=== PATIENT | male | born 2000 | race Two or more races ===

== ENCOUNTER 2024-12-24 11:11 | Emergency (ER) | payer BC, SELFPAY ==
[2024-12-24 11:26] VITALS: BP 142/90; PULSE 65; RESP 16; TEMP 36.9; O2SAT 97; BMI 38.5
[2024-12-24] MEDS: LIDOCAINE HCL 1% 20 ML VIAL INFL (11:39)
--- NOTE | 2024-12-24 12:04 | EDNOTE_ITS ---
<Statement entered by Liliana Hernandez MD - 12/24/24 17:32> As co-signing physician, I was present and available for consult prn. I concur with the plan and care as documented by the midlevel provider. ED Skin Abcess FB-RME/HPI General Chief complaint: Skin/Abscess/Foreign Body Stated complaint: CYST TO LOWER BACK Time Seen by Provider: 12/24/24 11:25 Source: patient Arrival date/time: 12/24/24 11:11 24-year-old male with no known medical history presents to the emergency room with a chief complaint of a cyst to his lower back x 3 days. Mode of arrival: ambulatory Limitations: no limitations Related Data Previous Rx's ?Medication ?Instructions ?Recorded clindamycin HCl 150 mg capsule 450 mg (3 x 150 mg) PO TID 7 days 12/24/24 #63 caps Allergies Allergy/AdvReac Type Severity Reaction Status Date / Time No Known Allergies Allergy Verified 12/24/24 11:14 Review of Systems Review of Systems Systems Reviewed: All systems reviewed, normal except as documented Constitutional Constitutional: Reports system reviewed and no additional complaints, except as documented, Denies fatigue, Denies fever(s), Denies headache(s) and Denies weakness Eyes Eyes: Reports system reviewed and no additional complaints, except as documented, Denies blurry vision and Denies change in vision ENT Ears, Nose, Mouth, and Throat: Reports system reviewed and no additional complaints, except as documented, Denies otalgia, Denies headache(s), Denies nasal congestion, Denies throat swelling and Denies vertigo Cardiovascular Cardiovascular: Reports system reviewed and no additional complaints, except as documented, Denies chest pain, Denies dyspnea and Denies dyspnea on exertion Respiratory Respiratory: Reports system reviewed and no additional complaints, except as documented, Denies chest congestion, Denies cough, Denies dyspnea, Denies dyspnea on exertion and Denies wheezing Gastrointestinal Gastrointestinal: Reports system reviewed and no additional complaints, except as documented, Denies abdominal pain, Denies cramping, Denies nausea and Denies vomiting Genitourinary Genitourinary: Reports system reviewed and no additional complaints, except as documented, Denies dysuria and Denies hematuria Musculoskeletal Musculoskeletal: Reports system reviewed and no additional complaints, except as documented and Denies back pain Integumentary/Breasts Skin/Breast: Reports system reviewed and no additional complaints, except as documented and Reports wounds (Pilonidal cyst) Neurologic Neurologic: Reports system reviewed and no additional complaints, except as documented, Denies confusion, Denies headache(s), Denies lack of coordination, Denies vertigo and Denies weakness Psychiatric Psychiatric: Reports system reviewed and no additional complaints, except as documented, Denies anxiety, Denies confusion, Denies depression, Denies paranoia, Denies suicidal ideation and Denies tactile hallucinations Endocrine Endocrine: Reports system reviewed and no additional complaints, except as documented and Denies fatigue Hematologic/Lymphatic Hematologic/Lymphatic: Reports system reviewed and no additional complaints, except as documented and Denies lymphadenopathy Allergic/Immunologic Allergic/Immunologic: Reports system reviewed and no additional complaints, except as documented, Denies throat swelling, Denies urticaria and Denies wheezing ED Exam General Limitations: Present no limitations General appearance: Present alert and in no apparent distress Head Head exam: Present atraumatic Eye Eye exam: Present normal appearance, PERRL and EOMI ENT ENT exam: Present normal exam, normal oropharynx and mucous membranes moist Neck Neck exam: Present normal inspection, full ROM and trachea midline Chest Chest inspection: Present normal inspection and symmetric chest wall rise Respiratory Respiratory exam: Present normal lung sounds bilaterally Cardiovascular Cardiovascular exam: Present regular rate, normal rhythm and normal heart sounds Abdominal Exam Abdominal exam: Present soft and normal bowel sounds Extremities Exam Extremities exam: Present normal inspection and full ROM Back Exam Back exam: Present normal inspection and full ROM Neurological Exam Neurological exam: Present alert, oriented X3 and CN II-XII intact Psychiatric Psychiatric exam: Present normal affect and normal mood Skin Skin exam: Present warm, dry, intact and normal color Expanded Skin Exam Type of lesion: Present abscess Distribution: Present other (Pilonidal cyst to the gluteal cleft) Description: Present tenderness, erythematous and discharge Body image: 2 1. 1 cm x 1 cm pilonidal cyst Course Quality Measures none Orders Category Date Time Status Set Up Suture Tray STAT Care 12/24/24 11:29 Active Wound Care NOW Care 12/24/24 11:29 Active Lidocaine 1% 20 ml [Xylocaine 1% 20 ML] Med 12/24/24 11:29 Discontinued 20 ml INFL X1 ONE Vital Signs Vital signs: Vital Signs Temperature 98.4 F 12/24/24 11:26 Pulse Rate 65 12/24/24 11:26 Respiratory Rate 16 12/24/24 11:26 Blood Pressure 142/90 H 12/24/24 11:26 Pulse Oximetry (%) 97 12/24/24 11:26 Oxygen Delivery Method Room Air 12/24/24 11:26 Procedures -ED Abscess I/D Site: other (Gluteal cleft pilonidal cyst) Local Anesthetic: lidocaine 1% Amount of anesthesia used (mL): 4 Technique: incised with #11 blade Amount of fluid expressed (mL): 3 Irrigation: Yes Packing used?: none Skin / Abscess / Foreign Body MDM Narrative MDM Narrative:: 24-year-old male with no known medical history presents to the emergency room with a chief complaint of a cyst to his lower back x 3 days. Patient is hemodynamically stable and in no apparent distress Physical examination shows a 1 cm x 1 cm pilonidal cyst. Patient states he was seen by his primary care provider and was sent to the emergency room for an incision and drainage An incision and drainage was performed the patient was cleaned and prepped with Betadine 3 mL of lidocaine were used and injected into the cyst. A #11 blade was used to create a small incision in the pilonidal cyst was drained and irrigated extensively. There were no complications a dressing was placed on the wound patient was discharged with oral antibiotics and was educated to return to the emergency room for any evidence of worsening signs or symptoms Patient data External records reviewed:: [facility] previous records Clinical information provided by:: patient Social determinants that could affect healthcare access:: none Patient has the following chronic illnesses:: No chronic illness How is presenting disease/condition affected by chronic disease/condition?: no chronic disease Evaluation data The following diagnostics were reviewed and interpreted by me:: lab results and radiology exam(s) Lab and/or radiology exams considered but not ordered:: Labs and radiology exams considered and ordered okay Interpretation Summary: N/A Medications / Prescriptions Medications or Prescriptions considered but not ordered:: Medication given Medication administrations:: Medication Administration History Discontinued Medications Lidocaine HCl (Lidocaine Hcl 1% 20 Ml Vial) 20 ml INFL X1 ONE Stop: 12/24/24 11:30 Last Admin: 12/24/24 11:39 Dose: 20 ml Documented By: CHUCK Comments: GIVEN TO TEMITOPE YING FOR ADMINISTRATION Medication given Consultations Consultation(s) initiated? (list below): No Diagnosis Skin/Abscess Differential Diagnosis: abscess of skin or subcutaneous tissue, contact dermatitis and other (Pilonidal cyst) Most likely diagnosis given after review of the tests above:: Pilonidal cyst Admission Indicated Admission indicated?: not indicated Admission Request Was there a request for admission?: No Disposition Plan Disposition Plan: Discharge Discharge Attestation Discharge Attestation: The patient and all family members were given an opportunity to ask questions and understood the discharge instructions. Discharge instructions specifically effects, indications for sooner follow up or return to the emergency department, and the expected course of current diagnosis. Patient condition: Stable Discharge Plan Plan Patient Disposition: HOME (Self Care) Disposition Comment: Stable Prescriptions/Referrals Prescriptions/Med Rec: New clindamycin HCl 150 mg capsule 450 mg PO TID 7 Days Qty: 63 0RF Problem List Clinical Impression: Pilonidal cyst Patient/Caregiver Discharge Instructions Education Materials: ED Cyst Pilonidal Infected IandD Additional Instructions: Please follow-up with your primary care provider in the next 24 to 48 hours. Your abscess was drained and incision was created to keep the draining in place. Antibiotics are sent to your pharmacy please pick them up and take them as indicated. For any evidence of worsening signs or symptoms return to the emergency room immediately Print Language: Urdu Stand Alone Forms: Nathalie Award Info., Work/School Release, Patient Portal Info Letter MARILYNN/TEMITOPE Supervising Physician MARILYNN/TEMITOPE Supervising Physician: Dr. HERNANDEZ
== END 2024-12-24 13:09 | disposition home or self-care (01) ==
LOC: SERX 12:52
PROVIDERS: Emergency Provider Emergency Medicine
DX: L05.91 Pilonidal cyst without abscess (principal)
CPT/HCPCS: 10080; 99283; J3490